=== PATIENT | female | born 1970 | race Hispanic/Latino ===

== ENCOUNTER 2017-04-30 09:10 | Outpatient (CLI) | payer BC ==
--- NOTE | 2017-04-30 11:43 | Mammography Report ---
BILATERAL MAMMOGRAM: FINDINGS: The breast tissue is extremely dense (>75% glandular). This may lower the sensitivity of mammography. No mass, distortion, suspicious calcification, or skin change is seen. There is no significant change compared to her prior study in April 2016. CAD was utilized. IMPRESSION: Negative mammogram. There is no mammographic evidence of malignancy. RECOMMENDATION: Follow-up per ACS guidelines. BI-RADS CATEGORY: 1 = Negative ACR BI-RADS MAMMOGRAPHIC CODES: 0 = Needs additional imaging evaluation; 1 = Negative; 2 = Benign; 3 = Probably benign; 4 = Suspicious; 5 = Malignant; 6 = Known biopsy-proven malignancy COMMENT: 1. Dense breast tissue, i.e., adenosis, fibrocystic changes, etc., may obscure an underlying neoplasm. 2. Approximately 10% of cancers are not detected with mammography. 3. A negative mammography report should not delay biopsy if a clinically suspicious mass is present. COMMENT: Patient follow-up letters are generated in [employer].
== END 2017-04-30 09:11 | disposition home or self-care (01) ==
LOC: SPVWC 09:10
PROVIDERS: ATTEND Obstetrics & Gynecology
DX: Z12.31 Encounter for screening mammogram for malignant neoplasm of breast (principal)
CPT/HCPCS: 77067; G0202

== ENCOUNTER 2020-05-11 08:41 | Outpatient (CLI) | payer BC, OTHER | END 2020-05-11 08:42 | disposition home or self-care (01) | LOC: LABHHL 08:41 | PROVIDERS: ATTEND Surgery | DX: N63.21 Unspecified lump in the left breast, upper outer quadrant (principal) | CPT/HCPCS: 88305; 88341; 88342 ==

== ENCOUNTER 2020-06-16 10:22 | Day surgery (SDC) | payer BC ==
[2020-06-11 15:04] LABS: Basophils # (Auto) 0.1 K/mm3 (0.0-0.1); Basophils % (Auto) 1.3 % (0.0-1.8); Eosinophils % (Auto) 0.4 % (0.0-4.3); Hemoglobin 13.7 gm/dl (10.1-14.3); Lymphocytes # (Auto) 2.6 K/mm3 (1.2-5.4); Lymphocytes % (Auto) 31.6 % (13.4-35.0); Mean Corpuscular HGB Conc 35 % (30-34); Mean Corpuscular Volume 92 fl (79-97); Monocytes # (Auto) 0.5 K/mm3 (0.0-0.8); Monocytes % (Auto) 6.7 % (0.0-7.3); Platelet Count 292 K/mm3 (140-440); Red Blood Count 4.24 M/mm3 (3.65-5.03); Red Cell Distribution Width 12.1 % (13.2-15.2)
[2020-06-11 15:42] LABS: BUN/Creatinine Ratio 28; Blood Urea Nitrogen 22 mg/dL (7-17); Calcium 10.3 mg/dL (8.4-10.2); Hemolysis Index 26
[~2020-06-16 10:22] MED LIST: VANCOMYCIN 1,500 MG in SODIUM CHLORIDE 0.9% 500 ML 500 ML IV NR; VANCOMYCIN/NS 1 GM/250 ML 1 GM/250 ML BAG IV NR
[2020-06-16] MEDS ORDERED: LACTATED RINGERS 1,000 ML IV SCH (11:00)
[2020-06-16] MEDS ORDERED: MAGNESIUM OXIDE 400 MG TAB PO NR (11:39)
[2020-06-16] MEDS ORDERED: ACETAMINOPHEN 500 MG TAB PO NR (11:39)
[2020-06-16] MEDS ORDERED: fentaNYL 100 MCG/2 ML INJ IV NR (11:40)
[2020-06-16] MEDS ORDERED: HYDROmorphone 1 MG/1 ML INJ IV PRN ×2 (11:40)
[2020-06-16] MEDS ORDERED: ONDANSETRON 4 MG/2 ML INJ IV PRN (11:40)
--- NOTE | 2020-06-16 11:42 | Anesthesia Day of Surgery ---
Anesthesia Day of Surgery - Day of Surgery Patient Examined: Yes Patient H&P Reviewed: Yes Patient is NPO: Yes
--- NOTE | 2020-06-16 11:46 | Anesthesia Consultation ---
Anesthesia Consult and Med Hx Date of service: 06/16/20 - Airway Anesthetic Teeth Evaluation: Good ROM Head & Neck: Adequate Mental/Hyoid Distance: Adequate Mallampati Class: Class III Intubation Access Assessment: Probably Good - Pre-Operative Health Status ASA Pre-Surgery Classification: ASA2 Proposed Anesthetic Plan: General Nerve Block: ES/PEC - Pre-Anesthesia Comment Pre-Anesthesia Comments: HX PONV - Pulmonary Hx Asthma: No (+2FS) - Cardiovascular System Hx Hypertension: Yes (2014) Hx Coronary Artery Disease: No (Pt reports negative NST [id number]) - Central Nervous System Hx Neuromuscular Disorder: Yes (Neuropathy-bilateral feet) Hx Psychiatric Problems: No - Gastrointestinal Hx Gastroesophageal Reflux Disease: Yes (Occasional; no RX) - Endocrine Hx Renal Disease: Yes (Hx stones. Partial neprectomy) Hx Hypothyroidism: Yes - Other Systems Hx Alcohol Use: Yes (RARE) Hx Substance Use: No Hx Cancer: Yes
[2020-06-16] MEDS ORDERED: SCOPOLAMINE TRANSDERMAL PATCH 72 HR TD ONE (11:54)
[2020-06-16] MEDS ORDERED: CELECOXIB 200 MG CAP PO NR (12:00)
[2020-06-16] MEDS ORDERED: GABAPENTIN 300 MG CAP PO NR (12:00)
[2020-06-16] MEDS ORDERED: MIDAZOLAM 2 MG/2 ML INJ IV NR (12:00)
[2020-06-16] MEDS ORDERED: dexAMETHasone 4 MG/ML VIAL ONE (12:35)
[2020-06-16] MEDS ORDERED: MIDAZOLAM 5 MG/5 ML INJ MDV IV ONE (12:35)
[2020-06-16] MEDS ORDERED: BUPIVACAINE-EPINEPHRINE/PF 0.25%-1:200,000 (30 ML) VIAL INFILTRATI ONE (12:35)
[2020-06-16] MEDS ORDERED: HYDROmorphone 1 MG/1 ML INJ ONE (14:02)
[2020-06-16] MEDS ORDERED: propofoL 200 MG/20 ML VIAL IV ONE (14:02)
[2020-06-16] MEDS ORDERED: dexAMETHasone 20 MG/5 ML VIAL ONE (14:03)
[2020-06-16] MEDS ORDERED: LIDOCAINE MPF (2%) 20 MG/1 ML VIAL 5 ML ONE (14:06)
[2020-06-16] MEDS ORDERED: ONDANSETRON 4 MG/2 ML INJ ONE (14:06)
[2020-06-16] MEDS ORDERED: WATER FOR IRRIG STERILE 1,500 ML BOTTLE IR ONE (14:58)
[2020-06-16] MEDS ORDERED: LACTATED RINGERS 1,000 ML ONE (15:43)
--- NOTE | 2020-06-16 16:47 | Operative Report ---
Operative Report Operative Report: Operative Report: June 16, 2020 Preoperative diagnosis: Left breast cancer of the upper outer quadrant Postoperative diagnosis: Same Procedure: Left partial mastectomy of the upper outer quadrant and SLNB Surgeon: Tiana Still MD Anesthesia: General Findings: Left breast mass and clip present within radiograph specimen; x1 SLN Complications: None EBL: 50 cc Disposition: PACU in good condition Indications for operative procedure: This is a 50 year old lady with newly diagnosed left breast cancer of the lower outer quadrant, Stage II [id number] ER/WA positive (left breast mass 1:00 position 7-8 cm from the nipple). Recommendations are to proceed with breast conservation. She understands the role of adjuvant radiation therapy and Oncotype DX will be obtained by medical oncology. She wished to proceed with the above procedure. Procedure in detail: Anesthesia placed left pectoral block. Patient was then taken to the operating room. Gen. anesthesia was administered. The left nipple was injected with radioisotope. Left breast and axilla were prepped and draped in the normal sterile operative fashion. Ultrasound was used to rosangela the area of cancer at 1:00 position 7-8 cm FN with irregular hypoechoic mass present. Timeout was performed. Gamma probe was inserted into the axilla. The area of hot spot was identified. A left axillary incision was made with a 15 blade knife with dissection taken down to the subcutaneous tissues. The axillary fascia was opened with the Bovie cautery. One SLN was identified. No additional counts were present. Lymph node was sent to pathology for permanent processing. Hemostasis was obtained in the left axillary cavity. Axillary cavity was appropriately irrigated and suctioned. Hemostasis was noted. Axillary fascia was approximated and closed using interrupted 3-0 Vicryl and the skin brought together and closed using a running 4-0 Monocryl followed by skin affix. Attention was then taken towards the left breast. Known left breast cancer 1:00 position 7-8 cm FN. A 1:00 breast incision was made with a 15 blade knife and dissection taken down to subcutaneous tissues. First began raising of the superior flap with with dissection take down to the pectoralis muscle, followed by raising of the inferior flap, medial flap and lateral flap with all flaps taken down to the pectoralis muscle. The breast area of concern was appropriately removed posteriorly from the pectoralis muscle with the aid of the Bovie cautery. Ultrasound used as well to assess the margins with appeared adequate. Specimen was marked and then sent to pathology and radiology; radiograph specimen with mass and clip present. Breast cavity was irrigated and hemostasis was obtained. The posterior deep breast tissues were approximated and closed using interrupted 3-0 Vicryl. The subcutaneous tissues were approximated and closed using interrupted 3-0 Vicryl followed by closing of the skin with a running 4-0 Monocryl and skin affix. The patient tolerated surgery very well and she was awaken from anesthesia without any complication and transported to PACU in good condition.
--- NOTE | 2020-06-16 16:50 | Short Stay Summary ---
Short Stay Documentation Date of service: 06/16/20 - History H&P: obtained from office - Allergies and Medications Current Medications: Allergies Penicillins Allergy (Verified 06/04/20 10:20) Rash codeine Adverse Reaction (Verified 06/04/20 10:20) Nausea Home Medications Medication Instructions Recorded Confirmed Last Taken Type Levothyroxine [Synthroid] 50 mcg PO QAM 06/04/20 06/04/20 Unknown History Lisinopril/Hydrochlorothiazide 1 each PO DAILY 06/04/20 06/04/20 Unknown History [Zestoretic 10-12.5 mg Tablet] traMADoL [Ultram 50 MG tab] 50 mg PO Q6HR PRN #20 tablet 06/16/20 Unknown Rx Active Medications Acetaminophen (Tylenol) 1,000 mg PO ONCE NR Stop: 06/16/20 20:00 Last Admin: 06/16/20 11:54 Dose: 1,000 mg Documented by: Celecoxib (Celebrex) 400 mg PO PREOP NR Stop: 06/16/20 20:00 Last Admin: 06/16/20 11:54 Dose: 400 mg Documented by: Gabapentin (Gabapentin) 300 mg PO PREOP NR Stop: 06/16/20 20:00 Last Admin: 06/16/20 11:54 Dose: 300 mg Documented by: Hydromorphone HCl (Dilaudid) 0.25 mg IV Q10MIN PRN PRN Reason: Pain, Moderate (4-6) Stop: 06/16/20 23:00 Hydromorphone HCl (Dilaudid) 0.5 mg IV Q10MIN PRN PRN Reason: Pain , Severe (7-10) Stop: 06/16/20 23:00 Vancomycin HCl 1,500 mg/ (Sodium Chloride) 530 mls @ 333.333 mls/hr IV PREOP NR Stop: 06/16/20 23:59 Last Admin: 06/16/20 13:55 Dose: 333.333 mls/hr Documented by: Lactated Ringer's (Lactated Ringers) 1,000 mls @ 100 mls/hr IV DIRECT MARIAH Last Admin: 06/16/20 11:35 Dose: 100 mls/hr Documented by: Magnesium Oxide (Mag-Ox) 400 mg PO ONCE NR Stop: 06/16/20 20:00 Last Admin: 06/16/20 11:54 Dose: 400 mg Documented by: Midazolam HCl (Versed) 2 mg IV PREOP NR Stop: 06/16/20 23:59 Ondansetron HCl (Zofran) 4 mg IV ONCE PRN PRN Reason: Nausea And Vomiting Stop: 06/16/20 23:00 - Brief post op/procedure progress note Date of procedure: 06/16/20 Pre-op diagnosis: left breast cancer UOQ Post-op diagnosis: same Procedure: left partial mastectomy with slnb Anesthesia: GETA Findings: left breast mass and clip present Surgeon: NICOLE MURRAY Estimated blood loss: other (50) Pathology: list (left partial mastectomy; x1 sln) Specimen disposition: to lab Condition: stable - Disposition Condition at discharge: Good Disposition: DC-01 TO HOME OR SELFCARE Short Stay Discharge Plan Activity: other (heavy lifting) Diet: regular Wound: keep clean and dry (wear breast binder; may shower in 48 hours; no baths, pools or lakes; do not rub or scrub incision) Follow up with: NICOLE MURRAY MD [Staff Physician] - 7 Days Prescriptions: traMADoL [Ultram 50 MG tab] 50 mg PO Q6HR PRN #20 tablet PRN Reason: Pain
[2020-06-16 18:04] VITALS: BP 126/78
--- NOTE | 2020-06-16 18:18 | Mammography Report ---
BREAST SPECIMEN RADIOGRAPH HISTORY: Left lumpectomy for breast cancer FINDINGS/IMPRESSION: The submitted radiograph or radiographs demonstrate(s) the presence of a spiculated mass containing a biopsy clip. Signer Name: Danika Vallejo MD Signed: 06/16/2020 6:13 PM Workstation Name: [id number]
== END 2020-06-16 18:15 | disposition home or self-care (01) ==
LOC: OR 10:22
PROVIDERS: ATTEND Surgery
DX: C50.412 Malignant neoplasm of upper-outer quadrant of left female breast (principal); Z20.828 Contact with and (suspected) exposure to other viral communicable diseases; G62.9 Polyneuropathy, unspecified; E78.00 Pure hypercholesterolemia, unspecified; I10 Essential (primary) hypertension; K21.9 Gastro-esophageal reflux disease without esophagitis; E03.9 Hypothyroidism, unspecified; J45.909 Unspecified asthma, uncomplicated; Z90.710 Acquired absence of both cervix and uterus; Z90.722 Acquired absence of ovaries, bilateral; Z87.442 Personal history of urinary calculi; Z72.89 Other problems related to lifestyle; Z98.890 Other specified postprocedural states; Z88.0 Allergy status to penicillin; Z88.5 Allergy status to narcotic agent; Z79.899 Other long term (current) drug therapy; Z80.3 Family history of malignant neoplasm of breast; Z90.5 Acquired absence of kidney
CPT/HCPCS: 19301; 36415; 38525; 38792; 64450; 76098; 78800; 80048; 85025; 88307; 88342; A9541; J1100; J1170; J2250; J2405; J2704; J3370; J7040; J7120; U0003; 88333; J3010

== ENCOUNTER 2021-05-17 09:31 | Outpatient (CLI) | payer BC ==
--- NOTE | 2021-05-17 16:37 | Mammography Report ---
DIGITAL SCREENING MAMMOGRAM WITH TOMOSYNTHESIS WITH CAD, 05/17/2021 CLINICAL INFORMATION / INDICATION: Routine Screening Mammography. History of left breast cancer TECHNIQUE: Digital bilateral 2D and 3D mammography with tomosynthesis was obtained in the craniocaud al and mediolateral oblique projections. Computer-Aided Detection (CAD) analysis was used for interp retation of this study. COMPARISON: 04/14/2020, 04/30/2017 FINDINGS: Breast Density: The breasts are heterogeneously dense, which may obscure small masses. No dominant mass, suspicious calcifications, or architectural distortion in the left breast. Postsurgical scar left breast. Previously noted left upper outer breast mass has been removed in the interim. There is new oval masslike focal asymmetry in the axillary tail/axillary region of the right breast m easuring approximately 14 mm. This has not been noted on any prior imaging studies and therefore doris ants further evaluation with ultrasound. IMPRESSION: 1. New oval masslike asymmetry in the right breast, axillary tail/axillary region seen only on MLO vi ew. Recommend further evaluation with ultrasound of the right axillary tail/axillary region. 2. Postsurgical/radiation change in the left breast. Follow up recommendation: Ultrasound BI-RADS Category 0: Incomplete. Needs additional imaging evaluation and/or prior mammograms for bebe heard. A "normal" or negative report should not discourage follow up or biopsy of a clinically significant f inding. A written summary of these findings will be mailed to the patient. The patient will be entered into a mammography reporting system which will generate a reminder letter for the patient's next appointmen t at the appropriate interval. The [employer] recommends yearly mammograms starting at age 40 and continuing as l vanda as a woman is in good health. Breast MRI is recommended for women with an approximate 20-25% or greater lifetime risk of breast cancer, including women with a strong family history of breast or ova zenaida cancer or who have been treated for Hodgkin's disease. Signer Name: Danika Vallejo MD Signed: 05/17/2021 4:33 PM Workstation Name: [id number]
== END 2021-05-17 09:32 | disposition home or self-care (01) ==
LOC: SPVWC 09:31
PROVIDERS: ATTEND Surgery
DX: Z12.31 Encounter for screening mammogram for malignant neoplasm of breast (principal)
CPT/HCPCS: 77063; 77067

== ENCOUNTER 2021-05-26 09:46 | Outpatient (CLI) | payer BC ==
--- NOTE | 2021-05-27 12:11 | Ultrasound Report ---
RIGHT DIGITAL DIAGNOSTIC MAMMOGRAM WITH CAD CONVENTIONAL, 05/26/2021 RIGHT LIMITED BREAST ULTRASOUND CLINICAL INFORMATION / INDICATION: Patient presents as a callback from screening mammogram for furthe r evaluation of an asymmetric density in the right breast. TECHNIQUE: Digital right mammographic imaging was performed. Spot compression views were obtained. Li mited ultrasound was performed. This examination was interpreted with the benefit of Computer-Aided D etection (CAD) analysis. COMPARISON: Prior mammogram 05/17/2021 FINDINGS: Breast Density: The breasts are heterogeneously dense, which may obscure small masses. MAMMOGRAPHIC FINDINGS: The previously described asymmetric density in the far posterior, superior rig ht breast underlies a scar marker denoting site of prior Mediport and is therefore most compatible wi th benign scarring. Targeted ultrasound was performed for confirmation. ULTRASOUND FINDINGS: Targeted ultrasound evaluation was performed of the area of interest. Targeted ultrasound of the right axilla reveals a morphologically normal lymph node. No suspicious mass or ly mphadenopathy identified. IMPRESSION: 1. The previously described asymmetric density corresponds with the site of scarring from prior chest wall Mediport. No suspicious mammographic or sonographic abnormality identified. Follow up recommendation: Routine yearly BI-RADS Category 2: Benign. A "normal" or negative report should not discourage follow up or biopsy of a clinically significant f inding. A written summary of these findings will be mailed to the patient. The patient will be entered into a mammography reporting system which will generate a reminder letter for the patient's next appointmen t at the appropriate interval. According to the [employer], yearly mammograms are recommended starting at age 40 and continuing as long as a woman is in good health. Breast MRI is recommended for women with an elvis roximately 20-25% or greater lifetime risk of breast cancer, including women with a strong family his tory of breast or ovarian cancer and women who have been treated for Hodgkin's disease. Signer Name: Abby Mckinley MD Signed: 05/27/2021 12:07 PM Workstation Name: [id number]
== END 2021-05-26 09:47 | disposition home or self-care (01) ==
LOC: SPVWC 09:46
PROVIDERS: ATTEND Surgery
DX: R92.2 Inconclusive mammogram (principal); R92.8 Other abnormal and inconclusive findings on diagnostic imaging of breast; Z95.828 Presence of other vascular implants and grafts

== ENCOUNTER 2022-07-06 10:11 | Outpatient (CLI) | payer BC ==
--- NOTE | 2022-07-09 14:35 | Mammography Report ---
DIGITAL SCREENING MAMMOGRAM WITH CAD, 07/06/2022 CLINICAL INFORMATION / INDICATION: Routine screening mammography. TECHNIQUE: Digital bilateral 2D mammography was obtained in the craniocaudal and mediolateral oblique projections. This examination was interpreted with the benefit of Computer-Aided Detection analysis. COMPARISON: 01/12/2012 through 05/17/2021. FINDINGS: Breast Density: The breasts are heterogeneously dense, which may obscure small masses. No dominant mass, suspicious calcifications, or architectural distortion in either breast. There are postlumpectomy/radiation changes in the left upper outer quadrant posteriorly. Associated c alcifications are likely dystrophic. IMPRESSION: No mammographic evidence of malignancy. Follow up recommendation: Routine yearly screening mammogram. - The ACR recommends yearly screening MRI in patients with a personal history of breast cancer who arreola ve dense fibroglandular tissue as well in patients who were diagnosed with breast cancer under the ag e of 50. BI-RADS Category 2: BENIGN. A "normal" or negative report should not discourage follow up or biopsy of a clinically significant f inding. A written summary of these findings will be mailed to the patient. The patient will be entered into a mammography reporting system which will generate a reminder letter for the patient's next appointmen t at the appropriate interval. The [employer] recommends yearly mammograms starting at age 40 and continuing as l vanda as a woman is in good health. Breast MRI is recommended for women with an approximate 20-25% or greater lifetime risk of breast cancer, including women with a strong family history of breast or ova zenaida cancer or who have been treated for Hodgkin's disease. Signer Name: Marcio Fernando MD Signed: 07/09/2022 2:31 PM Workstation Name: [id number]
== END 2022-07-06 10:12 | disposition home or self-care (01) ==
LOC: SPVWC 10:11
PROVIDERS: ATTEND Surgery
DX: Z12.31 Encounter for screening mammogram for malignant neoplasm of breast (principal)
CPT/HCPCS: 77067